=== PATIENT | female | born 1990 | race African-American/Black ===

== ENCOUNTER 2017-09-12 11:24 | Emergency (ER) | payer OTHER ==
[2017-09-12 11:30] VITALS: BP 149/92; PULSE 78; TEMP 98; BMI 24.6
--- NOTE | 2017-09-12 11:51 | PDOC ---
History of Present Illness - General Chief Complaint: Allergic Reaction Stated Complaint: ALLERGIC REACTION TO EYEBROW DYE Time Seen by Provider: 09/12/17 11:42 - History of Present Illness Initial Comments: 09/12/17 12:55 Chief complaint: Itching and redness of the eyebrows History of present illness: Itching and redness of the eyebrows for 2 days. This began after she received some dye for coloration which was applied to both eyebrows. Review of systems: No irritation of the eyes, blurred vision, URI symptoms, other skin rashes Past medical history: Healthy female, mother, high blood pressure control medication. No diabetes or other metabolic disease Social/family history reviewed and noncontributory Physical: Alert cheerful and cooperative well-developed well-nourished no acute distress Afebrile, vital signs normal PERRLA 4 mm, fundi benign. Conjunctivae, corneas clear. EOMs full without diplopia Erythema and mild edema of both eyebrows, which are discolored a purple color, presumably due to the dye that was used. This is well localized and not involving the upper eyelids, with the forehead. Throat is clear Neck is supple without bruit mass or nodes Chest is clear with full breath sounds throughout bilaterally, no wheezes rales or rhonchi CV regular without murmur rub or gallop Abdomen soft nontender without mass or organomegaly Impression: Contact dermatitis to , mild, no systemic reaction Plan: Antihistamine and corticosteroid cream. Cool compresses. Follow-up if condition worsens general lot attendant. Past History - Past Medical History Allergies/Adverse Reactions: Allergies Allergy/AdvReac Type Severity Reaction Status Date / Time No Known Allergies Allergy Verified 07/16/16 08:54 Home Medications: Ambulatory Orders Alprazolam 0.5 mg PO DAILY PRN 07/16/16 Amlodipine Besylate [Norvasc -] 10 mg PO DAILY 07/16/16 Hydrocortisone Valerate [Westcort 0.2% Cream -] 1 applic TP BID #1 tube Hydroxyzine Pamoate [Vistaril -] 25 - 50 mg PO TID PRN #20 capsule 09/12/17 Asthma: No COPD: No Diabetes: No HTN: Yes Lung CA: Yes (ANXIETY) - Surgical History Abdominal Surgery: Yes (UMBILICAL HERNIA 04/06) - Immunization History Td Vaccination: Yes Immunization Up to Date: Yes - Suicide/Smoking/Psychosocial Hx Smoking Status: No Smoking History: Current some day smoker Have you smoked in the past 12 months: Yes Number of Cigarettes Smoked Daily: 4 Information on smoking cessation initiated: Yes 'Breaking Loose' booklet given: 09/12/17 Hx Alcohol Use: (social) Drug/Substance Use Hx: No Substance Use Type: None *Physical Exam - Vital Signs Last Vital Signs Temp Pulse Resp BP Pulse Ox 98 F 78 18 149/92 99 09/12/17 11:25 09/12/17 11:25 09/12/17 11:25 09/12/17 11:25 09/12/17 11:25 *DC/Admit/Observation/Transfer Diagnosis at time of Disposition: Contact dermatitis Qualifiers: Contact dermatitis type: allergic Contact dermatitis trigger: dye Qualified Code(s): L23.4 - Allergic contact dermatitis due to dyes - Discharge Dispostion Disposition: HOME Condition at time of disposition: Stable Admit: No - Prescriptions Prescriptions: Hydrocortisone Valerate [Westcort 0.2% Cream -] 1 applic TP BID #1 tube Hydroxyzine Pamoate [Vistaril -] 25 - 50 mg PO TID PRN #20 capsule PRN Reason: For Itching - Referrals Referrals: Radha Leggett [Staff Physician] - - Patient Instructions Printed Discharge Instructions: DI for Contact Dermatitis - Post Discharge Activity
== END 2017-09-12 12:02 | disposition home or self-care (01) ==
LOC: FER 11:24
DX: L23.4 Allergic contact dermatitis due to dyes (principal); Z72.0 Tobacco use; F41.9 Anxiety disorder, unspecified; I10 Essential (primary) hypertension
CPT/HCPCS: 99282-25